=== PATIENT | male | born 1955 | race Caucasian/White ===

== ENCOUNTER 2018-04-20 15:04 | Emergency (ER) | payer OTHER, SELFPAY ==
[2018-04-20 15:07] VITALS: BP 190/90; PULSE 75; RESP 18; TEMP 36.4; O2SAT 98
--- NOTE | 2018-04-20 15:13 | ED.EYEPROB ---
HPI - Eye Problem <ALINA White - Last Filed: 04/20/18 22:18> General Chief complaint: Eye Problems Stated complaint: METAL IN LEFT EYE Time Seen by Provider: 04/20/18 15:13 Source: patient Mode of arrival: ambulatory Limitations: no limitations History of Present Illness HPI Narrative: 63-year-old male history of hypertension is a nonsmoker here for complaint of having a metal to his left eye. Patient states that yesterday he was drilling metal work when he went to rub his eye and felt that he had some metal in his eye. He was seen at the walk-in clinic earlier today and was sent here as the metal was not able to be removed from the left eye. He states he has mild blurriness to his left eye. He denies any trauma to the left eye. he denies any purulent drainage. He denies any other concerns or complaints at this time. Last tetanus was earlier this year. chief complaint: foreign body Related Data Home Medications Medication Instructions Recorded Confirmed cyanocobalamin (vitamin B-12) 1,000 mcg PO #0 11/20/16 magnesium oxide 250 mg PO #0 11/20/16 multivitamin [Multiple Vitamins] 1 tab PO QDAY #0 11/20/16 Previous Rx's Medication Instructions Recorded losartan 25 mg tablet 25 mg PO QDAY #90 tab 02/22/18 pantoprazole 40 mg tablet,delayed 40 mg PO BID #180 tab 02/22/18 release metoprolol succinate ER 50 mg 50 mg PO QDAY #90 ter 03/27/18 tablet,extended release 24 hr acetaminophen-codeine 1 tab PO Q4-6H PRN #10 tab 04/20/18 erythromycin 0.5 inch EYE-LEFT QID 7 Days #3.5 04/20/18 gram Allergies Allergy/AdvReac Type Severity Reaction Status Date / Time cortisone [CORTISONE] Allergy Severe Swelling Unverified 11/07/17 12:06 hydrocodone [HYDROCODONE] Allergy Severe Itching Unverified 11/07/17 12:06 omeprazole [OMEPRAZOLE] Allergy Severe GI upset Unverified 11/07/17 12:06 hydrochlorothiazide Allergy Intermediate DIARRHEA Unverified 11/07/17 12:06 [HYDROCHLOROTHIAZIDE] sucralfate [SUCRALFATE] Allergy Intermediate BLOAT AND Unverified 11/07/17 12:06 CRAMP Review of Systems <ALINA White - Last Filed: 04/20/18 22:18> Constitutional Denies chills, Denies fever(s), Denies lethargy and Denies weakness Eyes Denies change in vision, Denies eye discharge, Denies irritation and Denies loss of vision Comments: Metal foreign body left ENT Ears, Nose, Mouth, and Throat: Denies change in voice, Denies neck pain and Denies sore throat Cardiovascular Denies chest pain, Denies irregular heart rhythm, Denies lightheadedness, Denies palpitations, Denies dyspnea, Denies dyspnea on exertion and Denies orthopnea Respiratory Denies cough, Denies dyspnea, Denies dyspnea on exertion and Denies wheezing Gastrointestinal Gastrointestinal: Denies abdominal pain, Denies change in bowel habits, Denies diarrhea, Denies nausea and Denies vomiting Genitourinary Denies hematuria, Denies flank pain, Denies urinary incontinence and Denies urinary urgency Musculoskeletal Denies neck pain Integumentary/Breasts Denies pruritus, Denies erythema, Denies rash and Denies wounds Neurologic Denies confusion, Denies loss of vision and Denies weakness Psychiatric Denies anxiety, Denies confusion, Denies depression, Denies homicidal ideation and Denies suicidal ideation Endocrine Denies palpitations Allergic/Immunologic Denies wheezing Exam <ALINA White - Last Filed: 04/20/18 22:18> Initial Vital Signs Initial Vital Signs: Vital Signs Temperature 97.5 F L 04/20/18 15:07 Pulse Rate 75 04/20/18 15:07 Respiratory Rate 18 04/20/18 15:07 Blood Pressure 190/90 H 04/20/18 15:07 Pulse Oximetry 98 04/20/18 15:07 Const General: cooperative and well developed Nutritional Appearance: well nourished Orientation: alert, awake, oriented x3 and not confused HENMT Mouth: oral mucosae normal and oropharynx normal Eyes Eyelids: eyelids normal Conjunctivae: conjunctivae normal Pupils: PERRL EOM: EOM intact bilaterally Other: small metallic foreign body seen into the cornea at the 9 o'clock position. after foreign body removal fluorescein exam shows abrasion to area of foreign body and small rust ring. Resp Effort & Inspection: normal respiratory effort, able to speak in complete sentences, no respiratory distress and no use of accessory muscles Auscultation: clear to auscultation bilaterally, no rales, no rhonchi and no wheezes Cardio Rate: regular rate Rhythm: regular rhythm Heart Sounds: no click, no gallops, no murmurs and no rubs Skin General: no rashes or lesions noted, No jaundice and No petechiae Neuro General: alert, oriented x3, gait normal and no focal motor deficits Speech: speech normal <Marck Noguera DO - Last Filed: 04/23/18 05:56> Initial Vital Signs Initial Vital Signs: Vital Signs Temperature 97.5 F L 04/20/18 15:07 Pulse Rate 75 04/20/18 15:07 Respiratory Rate 18 04/20/18 15:07 Blood Pressure 190/90 H 04/20/18 15:07 Pulse Oximetry 98 04/20/18 15:07 Procedures <ALINA White - Last Filed: 04/20/18 22:18> Foreign Body EYE Location: eye (L) Topical anesthetic used: proparacaine Foreign body: metal Evidence of corneal penetration: No Technique: electric quentin Procedure performed under: direct visualization with magnification Post-procedure medication: ophthalmic antibiotic Patient tolerated procedure: well Complications: residual rust ring Course <ALINA White - Last Filed: 04/20/18 22:18> Orders Ordered: Discontinued Medications Proparacaine HCl (Parcaine 0.5% Ophth Keri) 1 drops EYE-LEFT NOW ONE Stop: 04/20/18 15:22 Last Admin: 04/20/18 15:28 Dose: 1 drop Vital Signs - 8 hr 04/20/18 15:07 04/20/18 16:37 Temperature 97.5 F L Pulse Rate 75 66 Respiratory Rate 18 18 Blood Pressure 190/90 H 161/89 H Pulse Oximetry 98 98 <Marck Noguera DO - Last Filed: 04/23/18 05:56> Orders Ordered: Discontinued Medications Proparacaine HCl (Parcaine 0.5% Ophth Keri) 1 drops EYE-LEFT NOW ONE Stop: 04/20/18 15:22 Last Admin: 04/20/18 15:28 Dose: 1 drop Vital Signs - 8 hr 04/20/18 15:07 04/20/18 16:37 Temperature 97.5 F L Pulse Rate 75 66 Respiratory Rate 18 18 Blood Pressure 190/90 H 161/89 H Pulse Oximetry 98 98 MDM - Eye Problem <Abdelrahman ThorntonALINA yost - Last Filed: 04/20/18 22:18> MDM Narrative Medical decision making narrative: metallic foreign body to the left cornea was removed by a electric bur. Small residual rust ring remains. Corneal abrasion is seen into the area with worsening exam post removal of foreign body. He is treated with erythromycin ointment. follow up with Ophthalmology next week. Call the office at number provided to schedule follow-up appointment for re-evaluation. [id number] Tylenol or Motrin as needed for any discomfort. For any worsening symptoms return to the emergency room. Discharge Plan Departure Patient Disposition: Home Clinical Impression: Acute foreign body of left cornea Discharge Date/Time: 04/20/18 16:38 Interventions: ED Discharge Assessment Last Done: 04/20/18 16:37 Instructions: DI for Corneal Foreign Body-Eye Activity Restrictions/Additional Instructions: metallic object to left eye was removed with electric bur. Small rust ring remains. Use [id number] Tylenol or Motrin as needed for any discomfort. you are prescribed an antibiotic ointment erythromycin use as directed. small amount of Tylenol with codeine is prescribed for breakthrough pain use as directed no driving while on this medication. Call ophthalmology number provided to schedule follow-up appointment beginning next week. For any worsening symptoms return to the emergency room. Prescriptions: New erythromycin 5 mg/gram (0.5 %) ointment 0.5 inch EYE-LEFT QID 7 Days Qty: 3.5 RF: 0 acetaminophen-codeine 300-15 mg tablet 1 tab PO Q4-6H PRN (Reason: pain) Qty: 10 RF: 0 No Action multivitamin [Multiple Vitamins] 1 EACH tablet 1 tab PO QDAY Qty: 0 RF: 0 cyanocobalamin (vitamin B-12) 1,000 MCG tablet extended release 1,000 mcg PO Qty: 0 RF: 0 magnesium oxide 250 MG tablet 250 mg PO Qty: 0 RF: 0 losartan [Cozaar] 25 mg tablet 25 mg PO QDAY Qty: 90 RF: 0 pantoprazole [Protonix] 40 mg tablet,delayed release (DR/EC) 40 mg PO BID Qty: 180 RF: 0 metoprolol succinate 50 mg tablet extended release 24 hr 50 mg PO QDAY Qty: 90 RF: 0 Referrals: Malcolm Cartagena MD [Physician] - Josephine Liu MD [Primary Care Provider] -
[2018-04-20] MEDS: PROPARACAINE 0.5% OPHTH SOL 1 DROPS EYE-LEFT (15:28)
[2018-04-20 16:37] VITALS: BP 161/89; PULSE 66; RESP 18; O2SAT 98
== END 2018-04-20 16:38 | disposition home or self-care (01) ==
PROVIDERS: Emergency Provider Nurse Practitioner Family; Family Provider Family Medicine; PCP Family Medicine
DX: T15.02XA Foreign body in cornea, left eye, initial encounter (principal)
CPT/HCPCS: 65220; 99283

== ENCOUNTER → 2018-05-16 14:31 | Outpatient (CLI) | payer OTHER, SELFPAY ==
[2018-05-16 16:59] LABS: Hep C Virus Ab w/Reflex Quant NEGATIVE s/c (NEGATIVE)
== END ==
PROVIDERS: PCP Family Medicine; Visit Provider Family Medicine
DX: Z11.59 Encounter for screening for other viral diseases (principal)
CPT/HCPCS: 36415; 86803

== ENCOUNTER → 2018-06-14 10:48 | Outpatient (CLI) | payer OTHER, SELFPAY ==
--- NOTE | 2018-06-14 12:16 | DI.RAD.S_ITS ---
PROCEDURE: XR THORACIC SPINE 3V INDICATIONS: mid back pain TECHNIQUE: 3 views of the thoracic spine were acquired. COMPARISON: None. FINDINGS: Bones: No fractures or dislocations. No suspicious bony lesions. Diffuse endplate sclerosis and spurring Soft tissues: No paravertebral stripe thickening. IMPRESSION: Diffuse discogenic changes. No fracture Dictated by: Pete Carlos M.D. on 06/14/2018 at 16:42 Approved by: Pete Carlos M.D. on 06/14/2018 at 16:43
== END ==
PROVIDERS: Family Provider Family Medicine; PCP Family Medicine; Visit Provider Family Medicine
DX: M54.6 Pain in thoracic spine (principal)
CPT/HCPCS: 72072

== ENCOUNTER → 2019-06-05 12:21 | Outpatient (CLI) | payer OTHER, MEDICAID, SELFPAY | PROVIDERS: PCP Family Medicine; Visit Provider Family Medicine | DX: G56.00 Carpal tunnel syndrome, unspecified upper limb (principal); G56.23 Lesion of ulnar nerve, bilateral upper limbs | CPT/HCPCS: 95885; 95886; 95913 ==

== ENCOUNTER → 2019-07-04 09:06 | Outpatient (CLI) | payer OTHER, MEDICAID, SELFPAY ==
[2019-07-04 10:07] LABS: Alanine Aminotransferase 20 IU/L (<50); Albumin 4.6 g/dL (3.5-5.0); Albumin Globulin Ratio 1.6 (1.0-2.8); Alkaline Phosphatase 70 U/L (38-126); Aspartate Aminotransferase 29 IU/L (17-59); Bilirubin Total 0.8 mg/dL (0.2-1.3); Blood Urea Nitrogen 13 mg/dL (9-20); Calcium 9.5 mg/dL (8.4-10.2); Carbon Dioxide 28 mmol/L (22-32); Chloride 104 mmol/L (98-107); Cholesterol 189 mg/dL (140-199); Estimated Glomerular Filt Rate > 60.0 mL/min (>60); Globulin 2.8 g/dL (1.7-4.1); Glucose 100 mg/dL (80-110); HDL Cholesterol 36 mg/dL (40-60); HEMOLYSIS < 15 (0-50); LDL Cholesterol Calculated 91 mg/dL (<100); Sodium 140 mmol/L (137-145); Total Protein 7.4 g/dL (6.3-8.2); Triglycerides 312 mg/dL (35-150)
[2019-07-04 10:13] LABS: Creatinine Urine Random 103.3 mg/dL
[2019-07-04 10:43] LABS: Microalbumi Creatinin Ratio Ur 5.8 ug/mg CR (<30); Microalbumin Urine Random < 0.6 mg/dL (0-1.6)
== END ==
PROVIDERS: PCP Family Medicine; Visit Provider Family Medicine
DX: I10 Essential (primary) hypertension (principal)
CPT/HCPCS: 36415; 80053; 80061; 82043; 82570

== ENCOUNTER → 2021-03-22 09:01 | Outpatient (CLI) | payer MEDICARE, OTHER, SELFPAY ==
[2021-03-22 09:50] LABS: Alanine Aminotransferase 27 IU/L (<50); Albumin 4.7 g/dL (3.5-5.0); Albumin Globulin Ratio 1.7 (1.0-2.8); Alkaline Phosphatase 66 U/L (38-126); Aspartate Aminotransferase 33 IU/L (17-59); BUN Creatinine Ratio 23.2 (6-22); Bilirubin Total 0.8 mg/dL (0.2-1.3); Blood Urea Nitrogen 19 mg/dL (9-20); Calcium 9.5 mg/dL (8.4-10.2); Carbon Dioxide 26 mmol/L (22-32); Chloride 108 mmol/L (98-107); Cholesterol 195 mg/dL (140-199); Estimated Glomerular Filt Rate > 60.0 mL/min (>60); Globulin 2.7 g/dL (1.7-4.1); Glucose 106 mg/dL (80-110); HDL Cholesterol 49 mg/dL (40-60); HEMOLYSIS < 15 (0-50); LDL Cholesterol Calculated 108 mg/dL (<100); Potassium 3.9 mmol/L (3.4-5.1); Sodium 141 mmol/L (137-145); Total Protein 7.4 g/dL (6.3-8.2); Triglycerides 188 mg/dL (35-150)
[2021-03-22 12:24] LABS: Creatinine Urine Random 248.6 mg/dL
[2021-03-22 12:29] LABS: Microalbumin Urine Random 1.5 mg/dL (0-1.6)
== END ==
PROVIDERS: PCP Family Medicine; Referring Provider Family Medicine; Visit Provider Family Medicine
DX: I10 Essential (primary) hypertension (principal)
CPT/HCPCS: 36415; 80053; 80061; 82043; 82570

== ENCOUNTER → 2022-08-21 10:40 | Outpatient (CLI) | payer OTHER, MEDICARE, SELFPAY ==
[2022-08-21 11:44] LABS: Alanine Aminotransferase 19 IU/L (<50); Albumin 4.5 g/dL (3.5-5.0); Albumin Globulin Ratio 1.4 (1.0-2.8); Alkaline Phosphatase 71 U/L (38-126); Aspartate Aminotransferase 23 IU/L (17-59); BUN Creatinine Ratio 12.1 (6-22); Blood Urea Nitrogen 11 mg/dL (9-20); Carbon Dioxide 27 mmol/L (22-32); Chloride 103 mmol/L (98-107); Cholesterol 216 mg/dL (140-199); Estimated Glomerular Filt Rate > 60 mL/min (>60); Globulin 3.2 g/dL (1.7-4.1); Glucose 97 mg/dL (80-110); HDL Cholesterol 41 mg/dL (40-60); HEMOLYSIS < 15 (0-50); LDL Cholesterol Calculated 128 mg/dL (<100); Sodium 140 mmol/L (137-145); Total Protein 7.7 g/dL (6.3-8.2); Triglycerides 236 mg/dL (35-150)
[2022-08-21 16:33] LABS: Microalbumin Urine Random 0.6 mg/dL (0-1.6)
[2022-08-21 16:40] LABS: Creatinine Urine Random 137.2 mg/dL; Microalbumi Creatinin Ratio Ur 4.3 ug/mg CR (<30)
== END ==
PROVIDERS: PCP Family Medicine; Referring Provider Family Medicine; Visit Provider Family Medicine
DX: I10 Essential (primary) hypertension (principal)
CPT/HCPCS: 36415; 80053; 80061; 82043; 82570